=== PATIENT | male | born 1930 | race African-American/Black ===

== ENCOUNTER 2019-05-04 15:21 | Emergency (ER) | payer OTHER, MEDICAID ==
[~2019-05-04] VITALS: Ht 177.8 cm; Wt 87.0 kg
[2019-05-04] MEDS ORDERED: HYDRALAZINE 20MG/ML VIAL IV ONE (19:15)
[2019-05-04] MEDS ORDERED: ACETAMINOPHEN 325MG TABLET PO ONE (19:15)
[2019-05-04 19:30] LABS: BASOPHILS % 0.3 % (0.0-2.0); EOSINOPHILS % 1.2 % (0.0-5.0); HEMATOCRIT. 35.8 % (42.0-52.0); LYMPHOCYTES % 42.4 % (20.0-50.0); MEAN CORPUSCULAR VOLUME 95.5 fL (80.0-94.0); MEAN PLATELET VOLUME 9.3 fl (7.4-10.4); MONOCYTES % 7.1 % (2.0-8.0); PLATELET 186 x1000/uL (130-400); RED BLOOD CELL COUNT 3.74 mill/uL (4.7-6.1); RED CELL DISTRIBUTION WIDTH 15.6 % (11.6-14.6)
[2019-05-04 19:31] LABS: CHLORIDE 110 mEq/L (98-107)
[2019-05-04 19:33] LABS: PARTIAL THROMBOPLASTIN TIME 27.5 sec (23.4-31.0); PROTHROMBIN TIME 10.7 sec (9.6-11.0)
[2019-05-04] MEDS ORDERED: CLONIDINE 0.2MG TABLET PO ONE (23:30)
[2019-05-05 00:19] VITALS: BP 171/69
== END 2019-05-05 00:41 | disposition home or self-care (01) ==
LOC: ER 15:21
DX: I10 Essential (primary) hypertension (principal); E78.00 Pure hypercholesterolemia, unspecified; R51 Headache
CPT/HCPCS: 36415; 70450; 71045; 80053; 83880; 84484; 85025; 85610; 85730; 93005; 96374; 99284; J0360

== ENCOUNTER 2019-05-30 19:11 | Emergency (ER) | payer OTHER, MEDICAID ==
[~2019-05-30] VITALS: Ht 175.3 cm; Wt 87.0 kg
[2019-05-31] MEDS ORDERED: NAPR375T5 PO (00:31)
[2019-05-31] MEDS ORDERED: NAPR-679 PO (00:31)
[2019-05-31] MEDS ORDERED: ATOR-2 PO (00:38)
[2019-05-31] MEDS ORDERED: ASPI-1158 PO (00:38)
[2019-05-31] MEDS ORDERED: ENAL20TA PO (00:38)
[2019-05-31] MEDS ORDERED: GABA-531 PO (00:38)
[2019-05-31] MEDS ORDERED: CLOP75TA33 PO (00:38)
[2019-05-31] MEDS ORDERED: ATEN50TA PO (00:38)
[2019-05-31] MEDS ORDERED: CLONIDINE 0.2MG TABLET PO ONE (00:45)
[2019-05-31 01:14] LABS: BASOPHILS % 0.4 % (0.0-2.0); HEMATOCRIT. 36.4 % (42.0-52.0); HEMOGLOBIN. 12.4 g/dL (14.0-18.0); LYMPHOCYTES % 43.3 % (20.0-50.0); MEAN CORPUSCULAR HEMOGLOBIN 32.3 pg (28.0-32.0); NEUTROPHILS % 44.3 % (40.0-76.0); PLATELET 170 x1000/uL (130-400); RED BLOOD CELL COUNT 3.83 mill/uL (4.7-6.1); RED CELL DISTRIBUTION WIDTH 15.6 % (11.6-14.6)
[2019-05-31 03:51] VITALS: BP 185/81
== END 2019-05-31 04:08 | disposition home or self-care (01) ==
LOC: ER 19:11
DX: I10 Essential (primary) hypertension (principal)
CPT/HCPCS: 36415; 80048; 85025; 99285